=== PATIENT | female | born 1985 | race Caucasian/White ===

== ENCOUNTER 2022-06-14 09:30 | Emergency (ER) | payer MEDICAID | END 2022-06-14 11:24 | disposition home or self-care (01) | LOC: DL.ED 09:30 | DX: S39.92XA Unspecified injury of lower back, initial encounter (principal); W10.8XXA Fall (on) (from) other stairs and steps, initial encounter | CPT/HCPCS: 72220; 99282; 99283 ==

== ENCOUNTER 2023-06-30 12:58 | Emergency (ER) | payer MEDICAID | END 2023-06-30 13:25 | disposition home or self-care (01) | LOC: DL.ED 12:58 | DX: M53.3 Sacrococcygeal disorders, not elsewhere classified (principal); Z79.899 Other long term (current) drug therapy | CPT/HCPCS: 99282; 99283 ==

== ENCOUNTER 2023-09-17 12:16 | Emergency (ER) | payer MEDICAID | END 2023-09-17 15:38 | disposition left against medical advice (07) | LOC: DL.ED 12:16 | DX: Z53.21 Procedure and treatment not carried out due to patient leaving prior to being seen by health care provider (principal) ==